=== PATIENT | male | born 1965 | race Caucasian/White ===

== ENCOUNTER 2019-05-31 09:11 | Day surgery (SDC) | payer OTHER ==
[2019-05-31] MEDS ORDERED: PROPOFOL 500 MG/50 ML EMU IV ONE (11:25)
[2019-05-31 12:00] VITALS: BP 113/90; PULSE 61; RESP 20; TEMP 97.5; O2SAT 96
== END 2019-05-31 12:14 | disposition home or self-care (01) | DRG 951 ==
LOC: SURG 09:11
PROVIDERS: ATTEND Surgery
DX: Z12.11 Encounter for screening for malignant neoplasm of colon (principal); E11.9 Type 2 diabetes mellitus without complications
CPT/HCPCS: 82962; J2704